=== PATIENT | male | born 1955 | race Caucasian/White ===

== ENCOUNTER 2019-11-07 16:10 | Emergency (ER) | payer OTHER, SELFPAY ==
[2019-11-07 16:10] VITALS: BP 120/81; PULSE 80; RESP 16; TEMP 36.8; O2SAT 98; BMI 22.3
[2019-11-07 16:27] VITALS: BP 127/84; PULSE 72; RESP 17; O2SAT 99
[2019-11-07 16:28] VITALS: BP 122/81; PULSE 76; RESP 16; O2SAT 99
--- NOTE | 2019-11-07 16:29 | EKG12_ITS ---
Test Reason : SYNCOPE Blood Pressure : / mmHG Vent. Rate : 068 BPM Atrial Rate : 068 BPM P-R Int : 192 ms QRS Dur : 090 ms QT Int : 390 ms P-R-T Axes : 073 046 047 degrees QTc Int : 414 ms Normal sinus rhythm Normal ECG Confirmed by OWEN AKERS, TAVARES ([id number]), photography editor FREDDIE FINE ([id number]) on 11/10/2019 1:35:29 PM Referred By: DELMA Confirmed By:TAVARES WEAVER MD
--- NOTE | 2019-11-07 16:30 | RAD_ITS ---
STUDY: X-RAY CHEST REASON FOR EXAM: Male, 64 years old. Syncope TECHNIQUE: Frontal and lateral views of the chest COMPARISON: None. FINDINGS: The lungs are hyperinflated, but clear. There are no pleural effusions. There is no pneumothorax. The heart is normal in size. The visualized osseous structures are within normal limits. RAD/Chest PA and Lateral IMPRESSION: No acute thoracic pathology. Electronically Signed: Ahsan Boateng, at 17:03 EDT Tel , Service support ,
--- NOTE | 2019-11-07 16:35 | ED.DCSUM_ITS ---
History of Present Illness Chief Complaint: Syncope Detail of Chief Complaint: Near syncope.syncope Informant: Patient Onset: Today Context: Sudden Onset Timing: Intermittent Quality: Sharp stabbing pain Location: Anterior left chest Current Severity: - - Resolved Maximum Severity: Severe Worsened by: Nothing Relieved by: Not applicable Associated Symptoms: Decreased vision, nausea, lightheadedness Narrative: Patient is 64-year-old male who presents with left-sided chest pain. Patient states he awoke from a nap. He has had pain anterior inferior left neck that extends down to the areola and makes a sharp bend to the left. The area of pain is that of L. He reports he has had back pain for 1.5 years. The pain that caused the near syncope lasted less than 1 minute and was located left anterior chest without radiation. He does have history of kyphosis. He apparently had problems with his back this morning. He denies headache, visual, ocular auditory sounds. He denies dysphonia or dysphasia. He denied radiation of the discomfort to his back, shoulders or extremities. He denied diaphoresis. He denied vomiting. He has no known history of coronary disease. He has no history of hypertension. He is on no medication. Patient denies any URI symptoms. Patient eyes fever or chills. Patient denies black or maroon stool. Patient denies history of DVT or PE. He has no risk factors for VTE. Patient states to family members had history of aortic dissection. Prior similar symptoms: No Recent Illness/Hospitalization: No - Past Medical History (1) History of kyphosis Status: Acute Past Medical History - Allergies and Home Meds Allergies/Adverse Reactions: Allergies No Known Allergies Allergy (Verified 11/07/19 16:12) Primary Care Physician: [place] [place] [Primary Care Provider] - Prior records reviewed: Yes Surgical History: no surgical history Lives: Alone Smoking Status: Never smoker Alcohol: None Drugs: None Review of Systems General: Denies: Chills, Malaise Eyes: Denies: Visual changes - bilaterally, Blurred Vision - bilaterally ENT: Denies: Bilateral ear pain, Rhinorrhea, Sore throat Cardiovascular: Reports: Chest pain Respiratory: Denies: Dyspnea, Cough, Sputum, Dyspnea on exertion, Orthopnea, Paroxysmal nocturnal dyspnea, -, - Gastrointestinal: Reports: Nausea. Denies: Abdominal pain, Vomiting, Diarrhea, Constipation, Melena, Hematochezia, -, - Genitourinary: Denies: Dysuria, Hematuria, Frequency Musculoskeletal: Denies: Myalgias, Arthralgias, Neck pain, Back pain, Swelling, Extremity Pain Skin: Denies: Rash, Wounds Neurological: Denies: Headache, Weakness, Parasthesia, Numbness Allergy: Denies: Uticaria, Swelling of the mouth Physical Exam Vital Signs/Narrative: Vital Signs Temp Pulse Resp BP Pulse Ox 11/07/19 16:28 76 16 122/81 H 99 11/07/19 16:27 72 17 127/84 H 99 11/07/19 16:10 98.3 F 80 16 120/81 H 98 Inital Vital Signs reviewed: Yes General: Well nourished, Well developed, No Acute Distress Head: Normocephalic, Atraumatic Eyes: Perrl, EOMI. Negative for: Pale conjunctiva, Scleral icterus ENT: Moist mucous membranes, No rhinorrhea, - - Trachea is midline. Neck: Supple, Nontender, No lymphadenopathy, No JVD, - - There is no carotid bruit. Cardiovascular: Regular rate, Regular rhythm, No murmurs, Normal S1, Normal S2 Respiratory: No distress, CTA bilaterally, Chest nontender Abdomen: Soft, Nontender, Nondistended, Normal bowel sounds, No masses, - - Is no abdominal bruit.. Negative for: Mass, Pulsatile mass Back: Nontender, Normal Inspection Extremities: Nontender, No edema, - - Is are symmetric upper and lower extremity as well as left and right Skin: Normal color, No rash Neurological: Alert, Oriented x3, Cranial nerves II-XII grossly intact, Normal Strength, Normal Sensation Psychological: Normal affect, Normal Mood Diagnostic/Tx/Re-eval Chest X-Ray - ED: 2 View, Normal, Heart, Mediastinum, Bony Structures, No Acute Disease, - - There is evidence of kyphoscoliosis. There is minimal chronic parenchymal changes. There is no pneumothorax, effusion or infiltrate. The cardiac silhouette and size are normal. Mediastinum is normal. There are no radiologic abnormalities to suggest aortic dissection. 11/07/19 16:30 Chest PA and Lateral [RAD] Stat - EKG Initial EKG Interpretation: Sinus Rhythm - Sinus rhythm with a ventricular rate of 68. ND interval 192 ms. QRS duration 90 ms. QT duration 390 ms. Girard is normal. EKG is normal. Prior: No Prior - Medical Decision Making Patient presents with atypical transient left-sided severe chest pain with symptoms consistent with vasovagal near syncope. Blood pressure was obtained left and right arm and are 122/81 and 127/84 respectively. Chest x-ray was obtained to assess mediastinum as well as to evaluate for evidence of pneumothorax. EKG was obtained to determine if there are any ischemia and this represents atypical presentation for cardiac ischemia. Since pain is transient occurred less than 1 hour ago troponin was not obtained since 1 would not expect it to be elevated. Furthermore patient's history is not consistent with cardiac ischemia Patient's EKG was normal. Patient's chest x-ray was normal with no findings suggestive or concerning for aortic dissection; therefore, will discharge to home ED Disposition - Plan for ED Patient: Disposition: Home or Assisted Living Diagnosis: Left-sided chest pain, Vasovagal near-syncope Instructions: ED Near Syncope Vasovagal, ED Chest Pain NonCardiac [facility]errals[facility] [Primary Care Provider] - As Needed
[2019-11-07 17:02] VITALS: BP 115/74; PULSE 68; RESP 20; O2SAT 97
== END 2019-11-07 17:09 | disposition home or self-care (01) ==
LOC: ED 17:05
PROVIDERS: Emergency Provider Emergency Medicine
DX: R55 Syncope and collapse (principal); R07.89 Other chest pain; M41.9 Scoliosis, unspecified
CPT/HCPCS: 71046; 93005; 99283

== ENCOUNTER 2021-04-16 01:25 | Emergency (ER) | payer OTHER, SELFPAY ==
[2021-04-16 01:00] LABS: Absolute Neutrophil Count 2.3 X10^3/uL (2.0-7.7); Hematocrit 42.5 % (40-54); Hemoglobin 14.4 g/dL (13.0-16.5); Mean Corp Hgb Conc 33.9 g/dL (32-36); Mean Corpuscular Hgb 30.1 pg (27.0-32.0); Mean Corpuscular Volume 88.7 fL (80-94); Neutrophil % 40.7 % (47-70); Platelet Count 277 K/mm3 (150-450); RBC Distribution Width CV 12.4 % (11.6-14.6); RBC Distribution Width SD 40.4 fl (35.1-43.9); Red Blood Count 4.79 M/mm3 (4.6-6.2); White Blood Count 5.6 K/mm3 (4.4-11.0)
[2021-04-16] MEDS: Meclizine HCl 25 MG Tablet PO (01:10)
[2021-04-16] MEDS: Ondansetron 4 MG/2 ML Vial IV (01:10)
[2021-04-16 01:27] VITALS: BP 138/110; PULSE 67; RESP 18; TEMP 36.2; O2SAT 98; BMI 22.1
[2021-04-16 01:28] VITALS: BP 94/58
[2021-04-16 01:40] LABS: Color, Urine Yellow (Yellow); Glucose, Dipstick Normal (Normal); Ketone-Dipstick Negative (Negative); Leukocyte Esterase-Dipstick Negative /ul (Negative); Nitrite-Dipstick Negative (Negative); Occult Blood-Urine 10 /ul (Negative); Protein-Dipstick 30 mg/dl (Negative); Urine Bilirubin Dipstick Negative (Negative); Urine Clarity Clear (Clear); Urine Urobilinogen Normal (Normal); Urine pH 6.5 (5.0 - 8.0)
--- NOTE | 2021-04-16 01:41 | CT_ITS ---
STUDY: CT BRAIN WITHOUT CONTRAST REASON FOR EXAM: Male, 66 years old. dizziness RADIATION DOSAGE (If Supplied By Facility): CTDIvol = ( 44.99 ) mGy, DLP = ( 812.98 ) mGycm TECHNIQUE: Transaxial CT imaging of the brain was performed without administration of intravenous contrast material. Individualized dose optimization techniques were used for this CT. COMPARISON: No relevant priors. FINDINGS: Normal soft tissue structures. Normal calvarium. There is mild cerebral atrophy with widening of the extra-axial spaces and ventricular dilatation. Normal white matter tracts of the cerebral hemispheres. Normal basal ganglia and thalami. Normal brainstem. Normal cerebellum. There is no intracranial hemorrhage. There are no findings of an acute ischemic infarction. Normal visualized paranasal sinuses. CT/Brain/Head without Contrast IMPRESSION: Involutional changes otherwise normal unenhanced CT scan of the brain for age. Electronically Signed: Zuleyka Barber MD at 1:29 EDT , Service support ,
--- NOTE | 2021-04-16 01:41 | EKG12_ITS ---
Test Reason : CP Blood Pressure : / mmHG Vent. Rate : 068 BPM Atrial Rate : 068 BPM P-R Int : 166 ms QRS Dur : 086 ms QT Int : 422 ms P-R-T Axes : 056 059 052 degrees QTc Int : 448 ms Normal sinus rhythm Normal ECG Confirmed by RUDDY AKERS, DAVID ([id number]), editor magazine RADHA MONTERO ([id number]) on 04/17/2021 10:41:42 AM Referred By: YORDAN Confirmed By:DAVID FOX MD
--- NOTE | 2021-04-16 01:42 | RAD_ITS ---
STUDY: X-RAY CHEST REASON FOR EXAM: Male, 66 years old. dyspnea TECHNIQUE: PA and lateral views of the chest. COMPARISON: 11/07/2019. FINDINGS: The lungs are clear and hyperexpanded. There is no demonstrated pleural abnormality. Normal size heart. Normal mediastinum and cecilia. Normal visualized pulmonary arteries. Normal visualized aortic arch and descending thoracic aorta. There is demineralization of the osseous structures. Normal visualized ribs, clavicles, and shoulders. There is no demonstrated abnormality of the visualized soft tissue structures of the upper abdomen. RAD/Chest PA and Lateral IMPRESSION: No acute cardiopulmonary disease. Electronically Signed: Zuleyka Barber MD at 1:12 EDT , Service support ,
--- NOTE | 2021-04-16 01:46 | EX.ED.DYSGE1 ---
HPI History of Present Illness Chief Complaint: General Illness Informant: patient Onset/Context/Timing Onset: Hours (1-2) Narrative Narrative: Patient presents by EMS. History is limited because the patient rambles and rambles, however it seems that he felt a hint of nausea before he went to bed couple hours ago, then he woke up 3 hours later, which is longer than I usually sleep at a time for, and when he got up out of bed he suddenly felt vertiginous but not with the usual spinning. He had a sensation of movement like he was going to fall over. He denies headache, diplopia, other vision changes, he did have some nausea without vomiting with it, no focal neurologic symptoms, and he feels short of breath and like he has chills. He seems anxious, and he states he is having tingling in all 4 distal extremities and when I suggested it might be hyperventilation from anxiety he states my hyperventilation I can assure you is not due to anxiety. He also states I am having some type of neurocognitive deficits. He discusses an episode that was similar to this back in 2013. He denies any recent illness, cough, or definite fevers recently. Denies any abdominal or chest pain. Patient states he is healthy and does not take any medications except some [id number] vitamins and recently did take a laxative for some mild constipation that resolved. No history of TIA or stroke. [facility] Medical History (Updated 04/16/21 @ 03:[address] Bertram Fletcher MD) History of kyphosis Medical History no medical history Home Medications NK 11/07/19 [History Last Taken Unknown] meclizine 25 mg PO Q8H PRN PRN #16 tab 04/16/21 [Rx Last Taken Unknown] Allergy/AdvReac Type Severity Reaction Status Date / Time No Known Allergies Allergy Verified 04/16/21 01:32 EDT Surgical History no surgical history Social History (Reviewed 04/16/21 @ 01:[address] Bertram Fletcher MD) Smoking Status: Never smoker ROS ROS ED Constitutional Constitutional ED: Reports malaise; Denies chills or fever(s) Eyes Eyes: Denies change in vision or diplopia ENT ENT ED: Denies rhinorrhea or sore throat Cardiovascular Cardiovascular: Denies chest pain or palpitations Respiratory/Chest Respiratory/Chest: Reports dyspnea; Denies cough Gastrointestinal Gastrointestinal: Reports nausea; Denies abdominal pain, diarrhea or vomiting Genitourinary Genitourinary ED: Denies dysuria or hematuria Musculoskeletal Musculoskeletal: Denies back pain or neck pain Integumentary Denies abscess or rash Neurologic Neurologic: Reports as per HPI and vertigo; Denies headache(s), paresthesias or weakness Psychiatric Psychiatric: Denies anxiety or suicidal thoughts EXAM Physical Exam Const Vital Signs: 04/16/21 01:27 EDT 04/16/21 01:33 EDT 04/16/21 01:28 EST Temperature 97.2 F L Temperature Source Temporal Pulse Rate 67 Respiratory Rate 18 Respiratory Pattern Normal Blood Pressure 138/110 H 94/58 L Blood Pressure Mean 119 70 Pulse Ox 98 Positive well nourished and well developed General Appearance ED: well developed and NAD HEENT Reports moist mucous membranes normocephalic and atraumatic Eyes PERRL and EOMs intact bilaterally Neck full ROM and supple Resp normal respiratory effort, no retractions and clear to auscultation bilaterally Resp Narrative: Mildly tachypneic without distress. Clear to auscultation throughout. Equal breath sounds bilaterally. Trachea midline. Cardio regular rate, regular rhythm and no murmurs Rate: Negative for tachycardic GI non-tender and non-distended Auscultation: normoactive bowel sounds Palpation: soft Back/Spine no CVA tenderness General Back: other FROM Extremity normal to inspection and no calf tenderness General Extremety ED: Negative for edema, pulses abnormal or tenderness General Extremity: Negative for edema or pulses abnormal Neuro oriented x3, CN's II-XII intact bilaterally and no sensory deficits noted Neuro Narrative: Normal rcnkhx-wr-[id number] and pmbr-eg-[id number] bilaterally. No objective sensory deficit. NIHSS 0. Sensorium / Orientation: awake and alert Speech: speech normal Motor Exam: strength 5/5 throughout Psych activity/motor behavior normal, denies hallucinations, denies homicidal ideation and denies suicidal ideation Mood & Affect: anxious Thought Process: normal thought process and other Borderline pressured speech Thought Content: normal thought content Skin no rashes or lesions noted and no wounds MDM MDM MDM Narrative Medical decision making narrative: Patient was given meclizine and Zofran and on reevaluation he states he is feeling remarkably better. He is asymptomatic. He is able to ambulate without any difficulty and his dyspnea is resolved without any specific treatment for that. I suspect this was an episode of peripheral vertigo. It was abruptly triggered by position change, and he has no findings of central etiology here. Stable for discharge home with a prescription for meclizine to use as needed he is comfortable with that plan we discussed reasons to return. Lab Data Attestation: I reviewed the patient's lab results. Labs: Laboratory Results - last 24 hr 04/16/21 04/16/21 04/16/21 01:20 EST 01:47 EST 01:47 EST WBC 5.6 RBC 4.79 Hgb 14.4 Hct 42.5 MCV 88.7 MCH 30.1 MCHC 33.9 RDW Std Deviation 40.4 RDW Coeff of [place] 12.4 Plt Count 277 Neut % (Auto) 40.7 L Absolute Neuts (auto) 2.3 Sodium 137 Potassium 3.6 Chloride 103 Carbon Dioxide 26.0 Anion Gap 8 BUN 13 Creatinine 1.01 Estim Creat Clear Calc 73.26 Est GFR (MDRD) Af Amer 96 Est GFR (MDRD) Non-Af 79 BUN/Creatinine Ratio 12.9 Glucose 116 H Calcium 9.6 Troponin I High Sens 5 Urine Color Yellow Urine Clarity Clear Urine pH 6.5 Ur Specific [place] 1.010 Urine Protein 30 H Urine Glucose (UA) Normal Urine Ketones Negative Urine Occult Blood 10 H Urine Nitrite Negative Urine Bilirubin Negative Urine Urobilinogen Normal Ur Leukocyte Esterase Negative Urine RBC 0 SEEN Urine WBC 0-5 SEEN Ur Squamous Epith Cells 0 SEEN Urine Bacteria 0 SEEN Hyaline Casts 0-5 SEEN Urine Mucus 0 SEEN Radiography Diagnostic Testing: Clinical Impression(s) from Imaging Studies Brain CT 04/16/21 01:41 EST IMPRESSION: Involutional changes otherwise normal unenhanced CT scan of the brain for age. Electronically Signed: Zuleyka Barber MD at 1:29 EDT , Service support , Chest X-Ray 04/16/21 01:42 EST IMPRESSION: No acute cardiopulmonary disease. Electronically Signed: Zuleyka Barber MD at 1:12 EDT , Service support , EKG Initial EKG: Attestation: I personally reviewed and interpreted this EKG as follows: Interpretation: Sinus Rhythm (68) and No Acute Injury Pattern Comments: Normal EKG Prior EKG tracings: available for review Prior: Unchanged Discharge Plan Triage Chief Complaint: General Illness ED Provider: Bertram Fletcher Dx/Rx/DC Orders Clinical Impression: Peripheral vertigo, unspecified Instructions: ED Vertigo, Unspecified Prescriptions: New meclizine [meclizine] 25 MG tablet 25 mg PO Q8H PRN PRN (Reason: Dizziness) Qty: 16 RF: 0 No Action NK RF: 0 [facility] Provider[facility] [facility]errals[facility] [Primary [facility] Provider] - 3-5 Days if not improving Disposition Disposition: Home, Self Care
[2021-04-16 01:47] LABS: Bacteria 0 SEEN /hpf (None Seen); Hyaline Cast 0-5 SEEN /lpf (0-5); Mucous, Urine 0 SEEN /hpf (<or=2+); Red Blood Cells-Urine 0 SEEN /hpf (0-5); Squamous Epithelial Cells - UA 0 SEEN /hpf (0-5); White Blood Cells 0-5 SEEN /hpf (0-5)
[2021-04-16 01:54] LABS: Anion Gap 8 (5-15); BUN 13 mg/dL (7-18); BUN/Creat Ratio 12.9 RATIO (10-20); Calcium,Total 9.6 mg/dL (8.5-10.1); Chloride 103 mmol/L (98-107); Creatinine, Serum 1.01 mg/dL (0.70-1.30); EST Glomerular Filtration Rate 79 mL/min (>60); Est Glom Filt Rate - Afr Amer 96 mL/min (>60); Estimated Creatinine Clearance 73.26 ml/min; Glucose 116 mg/dL (74-106); Potassium 3.6 mmol/L (3.5-5.1); Sodium Level 137 mmol/L (136-145); Troponin-I HS 5 pg/mL (3.0-78.0)
[2021-04-16 03:44] VITALS: BP 100/72; PULSE 71; RESP 17; O2SAT 98
== END 2021-04-16 03:45 | disposition home or self-care (01) ==
PROVIDERS: Emergency Provider Emergency Medicine
DX: H81.399 Other peripheral vertigo, unspecified ear (principal)
CPT/HCPCS: 70450; 71046; 80048; 81001; 84484; 85025; 87426; 93005; 96374; 99285; A4216; J2405

== ENCOUNTER 2021-05-17 04:09 | Emergency (ER) | payer OTHER, SELFPAY ==
[2021-05-17 04:10] VITALS: BP 106/66; PULSE 80; RESP 18; TEMP 36.6; O2SAT 100; BMI 20.8
--- NOTE | 2021-05-17 05:17 | RAD_ITS ---
STUDY: X-RAY - ACUTE ABDOMINAL SERIES REASON FOR EXAM: Male, 66 years old. pain TECHNIQUE: Single view of the chest. Supine, and erect view(s) of the abdomen were obtained. COMPARISON: Chest x-ray 04/16/2021 FINDINGS: There is hyperinflation of the lungs consistent with chronic obstructive lung disease (COPD). There is no demonstrated pneumothorax. Normal size heart. Normal mediastinum and cecilia. Normal visualized pulmonary arteries. Normal visualized aortic arch and descending thoracic aorta. There is a moderate amount of colonic fecal material. The soft tissue structures of the abdomen and pelvis are unremarkable. Normal visualized osseous structures. Osteopenia. RAD/Acute Abdomen Inc Chest IMPRESSION: COPD and osteopenia. No pulmonary edema, congestive heart failure or confluent pneumonia. There is moderate amount of fecal material. There is no obstruction. Electronically Signed: Pebbles Dior MD at 6:35 EST , Service support ,
--- NOTE | 2021-05-17 05:17 | RAD_ITS ---
STUDY: X-RAY - SOFT TISSUE NECK REASON FOR EXAM: Male, 66 years old. pain TECHNIQUE: 2 view(s) of the neck were obtained. COMPARISON: None. FINDINGS: Normal visualized nasopharynx, oropharynx, hypopharynx. Normal epiglottis. Normal visualized subglottic tracheal air column. Normal prevertebral soft tissue structures. There are degenerative changes of the cervical spine with cervical spondylosis. Osteopenia. The soft tissue structures are unremarkable. Hyperinflation of visualized lung parenchyma. RAD/Neck for Soft Tissue IMPRESSION: Osteopenia and degenerative changes. Hyperinflated lung parenchyma. No airway occlusion. Electronically Signed: Pebbles Dior MD at 6:33 EST , Service support ,
--- NOTE | 2021-05-17 05:17 | EKG12_ITS ---
Test Reason : DYSRHYTHMIA Blood Pressure : / mmHG Vent. Rate : 065 BPM Atrial Rate : 065 BPM P-R Int : 192 ms QRS Dur : 084 ms QT Int : 406 ms P-R-T Axes : 077 052 056 degrees QTc Int : 422 ms Normal sinus rhythm Normal ECG Confirmed by OWEN AKERS, TAVARES ([id number]), brands editor RADHA MONTERO ([id number]) on 05/18/2021 11:33:11 AM Referred By: TANIA Confirmed By:TAVARES WEAVER MD
[2021-05-17] MEDS: 0.9% Normal Saline 1,000 ML 999 ML IV (05:42)
[2021-05-17 05:53] LABS: Absolute Lymphocyte Count 0.69 X10^3/uL (0.83-4.51); Absolute Neutrophil Count 1.3 X10^3/uL (2.0-7.7); Basophil# 0.01 X10^3/uL; Basophil% 0.4 % (0-1); Eosinophil# 0.03 X10^3/uL; Eosinophils% 1.2 % (0-5); Hemoglobin 14.5 g/dL (13.0-16.5); Lymphocyte # 0.69 X10^3/ul (0.83-4.51); Lymphocyte % 26.7 % (19-41); Mean Corp Hgb Conc 33.7 g/dL (32-36); Mean Corpuscular Hgb 29.6 pg (27.0-32.0); Mean Corpuscular Volume 87.8 fL (80-94); Mean Platelet Vol. 9.5 fl (6.2-12.0); Monocyte# 0.53 X10^3/uL; Monocyte% 20.5 % (0-10); NRBC Flagged by Analyzer 0 % (0-5); Neutrophil # 1.32 X10^3/uL (2.7-7.7); Neutrophil % 51.2 % (47-70); Platelet Count 145 K/mm3 (150-450); RBC Distribution Width CV 12.6 % (11.6-14.6); RBC Distribution Width SD 40.5 fl (35.1-43.9); White Blood Count 2.6 K/mm3 (4.4-11.0)
[2021-05-17 06:18] LABS: CPK Total, Creatine Kinase 232 U/L (39-308)
[2021-05-17 06:35] VITALS: BP 122/89; O2SAT 100
[2021-05-17 07:05] LABS: Bacteria 0 SEEN /hpf (None Seen); Mucous, Urine 0 SEEN /hpf (<or=2+); Squamous Epithelial Cells - UA 0 SEEN /hpf (0-5); White Blood Cells 0 SEEN /hpf (0-5)
[2021-05-17 07:08] LABS: Color, Urine Yellow (Yellow); Glucose, Dipstick Normal (Normal); Ketone-Dipstick 5 mg/dl (Negative); Leukocyte Esterase-Dipstick Negative /ul (Negative); Nitrite-Dipstick Negative (Negative); Occult Blood-Urine 10 /ul (Negative); Protein-Dipstick Negative (Negative); Urine Bilirubin Dipstick Negative (Negative); Urine Clarity Clear (Clear); Urine Urobilinogen Normal (Normal)
[2021-05-17 07:15] LABS: Red Blood Cells-Urine 0-5 SEEN /hpf (0-5)
--- NOTE | 2021-05-17 07:20 | EDS_ITS ---
HPI History of Present Illness Chief Complaint: General Illness Narrative Narrative: Patient is a 66-year-old male who presents to the ER with multiple complaints. He is reported he has various episodes throughout the month of April where he had felt fatigued and lightheaded. He states that he has a severe kyphosis and he is wondering if this is caused compression of his abdominal viscera. He also reports that he has been feeling hypoxic and with this wide constellation of symptoms patient called EMS to bring him in for evaluation [facility] Medical History History of kyphosis Home Medications meclizine 25 mg PO Q8H PRN PRN #16 tab 04/16/21 [Rx Last Taken Unknown] dexamethasone [Decadron] 6 mg PO DAILY 10 Days #10 tab 05/17/21 [Rx Last Taken Unknown] Allergy/AdvReac Type Severity Reaction Status Date / Time No Known Allergies Allergy Verified 05/17/21 04:16 Social History (Reviewed 04/16/21 @ 01:[address] Bertram Fletcher MD) Smoking Status: Never smoker ROS ROS ED Constitutional Constitutional ED: Denies chills or fever(s) ENT ENT ED: Denies sore throat Cardiovascular Cardiovascular: Denies chest pain Respiratory/Chest Respiratory/Chest: Reports dyspnea; Denies cough Gastrointestinal Gastrointestinal: Reports nausea; Denies abdominal pain, diarrhea or vomiting Genitourinary Genitourinary ED: Denies dysuria Musculoskeletal Musculoskeletal: Denies myalgias Integumentary Denies rash Neurologic Neurologic: Reports weakness; Denies headache(s) Hematologic/Lymphatic Hematologic/Lymphatic: Denies easy bleeding or easy bruising EXAM Physical Exam Const Vital Signs: 05/17/21 04:10 05/17/21 04:17 05/17/21 06:35 Temperature 97.9 F Temperature Source Oral Pulse Rate 80 Respiratory Rate 18 Respiratory Effort Normal Respiratory Pattern Normal Blood Pressure 106/66 122/89 H Blood Pressure Mean 79 100 Pulse Ox 100 100 Oxygen Delivery Method Room Air Room Air Positive well nourished and well developed General Appearance ED: well developed HEENT Reports dry mucous membranes Mouth ED: Yes dry mucous membranes Mouth: dry mucous membranes Eyes PERRL and EOMs intact bilaterally Neck supple Neck Narrative: No crepitance noted no nodule or goiter noted to the thyroid gland and no pain with palpation of the thyroid cartilage Chest Wall palpation of chest normal Resp normal respiratory effort and clear to auscultation bilaterally Cardio regular rate and regular rhythm Rate: other Other Details: Radial pulses are +2-4 bilaterally are equal and symmetric GI normal to inspection, nondistended, normoactive bowel sounds, non-tender, non- distended and no masses GI Narrative: No voluntary guarding or rigidity no pulsatile mass Auscultation: normoactive bowel sounds Palpation: soft Extremity normal to inspection Neuro oriented x3 and CN's II-XII intact bilaterally Sensorium / Orientation: alert Motor Exam: strength 5/5 throughout Psych Psych Narrative: Patient has a nervous/anxious affect Skin no rashes or lesions noted MDM MDM MDM Narrative Medical decision making narrative: Patient presented to the ER with multiple complaints. Based on the wide array of his symptoms as well as his age I did elect to perform a basic work-up. White blood cell count was low at 2.6 concerning for possible Covid so therefore a swab was obtained. Covid test was positive but the x-ray of his abdomen chest and neck revealed no acute patholo gy. Moreover his vitals were normal with no signs of respiratory distress. Therefore at this time as patient has Covid this could account for his multiple symptoms of fatigue and shortness of breath as he is not hypoxic or showing signs of severe dehydration he can be placed on steroids and discharged home Lab Data Attestation: I reviewed the patient's lab results. Labs: Laboratory Results - last 24 hr 05/17/21 05/17/21 05/17/21 05:43 05:43 07:00 WBC 2.6 L RBC 4.90 Hgb 14.5 Hct 43.0 MCV 87.8 MCH 29.6 MCHC 33.7 RDW Std Deviation 40.5 RDW Coeff of [place] 12.6 Plt Count 145 L MPV 9.5 Immature Gran % (Auto) 0.000 Neut % (Auto) 51.2 Lymph % (Auto) 26.7 [place] % (Auto) 20.5 H Eos % (Auto) 1.2 Baso % (Auto) 0.4 Absolute Neuts (auto) 1.3 L Absolute Lymphs (auto) 0.69 L Nucleated RBC % 0 Total Creatine Kinase 232 Urine Color Yellow Urine Clarity Clear Urine pH 8.0 Ur Specific [place] 1.010 Urine Protein Negative Urine Glucose (UA) Normal Urine Ketones 5 H Urine Occult Blood 10 H Urine Nitrite Negative Urine Bilirubin Negative Urine Urobilinogen Normal Ur Leukocyte Esterase Negative Urine RBC 0-5 SEEN Urine WBC 0 SEEN Ur Squamous Epith Cells 0 SEEN Urine Bacteria 0 SEEN Urine Mucus 0 SEEN Radiography Diagnostic Testing: Clinical Impression(s) from Imaging Studies Acute Abdomen Series 05/17/21 05:17 IMPRESSION: COPD and osteopenia. No pulmonary edema, congestive heart failure or confluent pneumonia. There is moderate amount of fecal material. There is no obstruction. Electronically Signed: Pebbles Dior MD at 6:35 EST , Service support , Soft Tissue Neck X-Ray 05/17/21 05:17 IMPRESSION: Osteopenia and degenerative changes. Hyperinflated lung parenchyma. No airway occlusion. Electronically Signed: Pebbles Dior MD at 6:33 EST , Service support , Discharge Plan Triage Chief Complaint: General Illness ED Provider: Jefferson Leslie Dx/Rx/DC Orders Clinical Impression: COVID-19 Instructions: Coronavirus Disease 2019 (COVID-19): Caring for Yourself or Others Prescriptions: New dexamethasone [Decadron] 6 mg tablet 6 mg PO DAILY 10 Days Qty: 10 RF: 0 No Action meclizine [meclizine] 25 MG tablet 25 mg PO Q8H PRN PRN (Reason: Dizziness) Qty: 16 RF: 0 [facility] [facility] [facility] [Primary Care Provider] - Disposition Disposition: Home, Self Care
[2021-05-17 07:55] LABS: Anion Gap 10 (5-15); BUN 11 mg/dL (7-18); BUN/Creat Ratio 11.8 RATIO (10-20); Calcium,Total 9.6 mg/dL (8.5-10.1); Chloride 99 mmol/L (98-107); Creatinine, Serum 0.93 mg/dL (0.70-1.30); EST Glomerular Filtration Rate 86 mL/min (>60); Est Glom Filt Rate - Afr Amer 105 mL/min (>60); Estimated Creatinine Clearance 74.91 ml/min; Glucose 87 mg/dL (74-106); Magnesium 2.3 mg/dL (1.6-2.6); Potassium 4.3 mmol/L (3.5-5.1); Sodium Level 136 mmol/L (136-145); Troponin-I HS 7 pg/mL (3.0-78.0)
[2021-05-17 08:00] VITALS: BP 140/68; PULSE 82; RESP 18; O2SAT 96
== END 2021-05-17 08:44 | disposition home or self-care (01) ==
PROVIDERS: Emergency Provider Emergency Medicine
DX: U07.1 COVID-19 (principal); M85.80 Other specified disorders of bone density and structure, unspecified site; J44.9 Chronic obstructive pulmonary disease, unspecified; Z79.52 Long term (current) use of systemic steroids
CPT/HCPCS: 70360; 74022; 80048; 81001; 82550; 83735; 84484; 85025; 87426; 93005; 96360; 99285; J7030